=== PATIENT | female | born 1975 | race Caucasian/White ===

== ENCOUNTER → 2021-07-23 | Outpatient (CLI) | payer OTHER ==
--- NOTE | 2021-07-25 06:28 | SLEEP ---
DATE OF STUDY: 07/23/2021 HOME SLEEP STUDY ATTENDING PHYSICIAN: Dr. Encinas. The patient is a 46-year-old who weighs 208 pounds with a BMI of 34.6. The patient's [place] score was 11. The patient underwent home sleep study performed at [facility]. Total recording time was 531 minutes. During the night study, the patient had 18 obstructive apneas, 2 central apneas, 44 mixed apneas and 37 hypopneas. The patient's AHI was 30 per hour. Nocturnal oximetry study revealed an average oxygen saturation 94% with a lowest of 88%. Mean heart rate 79 beats per minute with a maximum of 114 beats per minute. IMPRESSION: 1. Severe obstructive sleep apnea at an AHI of 30 per hour. 2. No significant nocturnal hypoxia. RECOMMENDATIONS: 1. The patient would benefit from in-lab CPAP titration study. Alternatively home auto CPAP can be arranged. 2. Once the patient is optimally treated with CPAP, then follow up in 4-6 weeks to assess compliance and to document clinical improvement. 3. Weight loss is strongly advised. 4. Avoid [employer] depressants. 5. Cautioned regarding driving until symptoms of sleep apnea resolve with the use of CPAP. MARIE DR: Yariel TID: [id number] CC: Adrian ENCINAS MD
== END ==
LOC: RT 08:44
PROVIDERS: ATTEND Family Medicine
DX: G47.33 Obstructive sleep apnea (adult) (pediatric) (principal)
CPT/HCPCS: G0399